=== PATIENT | male | born 1965 | race Caucasian/White ===

== ENCOUNTER 2017-11-28 09:24 | Emergency (ER) | payer OTHER, BC ==
--- NOTE | 2017-11-28 11:03 | CR ---
Clinical history: 52-year-old male injured in a fall "onto back". Interpretation: AP lateral and open-mouth odontoid views of the cervical spine unremarkable. Homogeneous normal bone density and normal height/alignment of the 7 cervical vertebra. No sign of pathologic skeletal lesion, prevertebral soft tissue swelling, cervical fracture, spondylo listhesis or abnormal intervertebral disc space narrowing. No cervical rib anomalies. Lung apices clear. CONCLUSION: Negative exam.
--- NOTE | 2017-11-28 11:05 | CR ---
Clinical history: 52-year-old male injured fall on to back ( "negative" cervical spine exam). Interpretation: Subtle relative intervertebral disc space narrowing with endplate sclerosis and hyper trophic marginal spur formation several levels mid and lower dorsal spine characteristic of chronic d isc disease and arthritic spondylosis. No paraspinal soft tissue mass (hematoma), sign of thoracic fracture or dislocation. Posterior ribs unremarkable. Normal cardiac silhouette and mediastinal width. CONCLUSION: Chronic multilevel disc disease and arthritis. No acute fractures.
--- NOTE | 2017-11-28 11:09 | CR ---
Clinical history: 52-year-old male emergency department after a fall and injury. Interpretation: AP lateral lumbosacral spine exam confirms chronic lower lumbar disc disease i.e. int erspace narrowing with some endplate sclerosis and marginal spur formation at the L5-S1 level. No sign of psoas hematoma or lumbar fracture/spondylolisthesis. No other abnormal intervertebral disc space narrowing. Symmetric spacing normal-appearing SI and hip joints. CONCLUSION: No fractures. L5-S1 disc disease.
[2017-11-28] MEDS ORDERED: methylPREDNISolone Sodium Succinate 125 MG/2 ML SDV IVPUSH ONE (11:17)
[2017-11-28] MEDS ORDERED: Ketorolac 30 MG/ML SDV IM ONE (11:17)
[2017-11-28 11:23] VITALS: BP 111/83
--- NOTE | 2017-11-28 11:28 | EDM.PDOC ---
ED HPI GENERAL MEDICAL PROBLEM - General Chief Complaint: Back Pain or Injury Stated Complaint: SLIPPED ON ICE, ON BACK Time Seen by Provider: 11/28/17 09:58 Source of Information: Reports: Patient, RN, RN Notes Reviewed History Limitations: Reports: No Limitations - History of Present Illness INITIAL COMMENTS - FREE TEXT/NARRATIVE: Pt presents to the ER with c/o slipping on ice and falling flat on his back at [facility] where he is currently working. He states this happened about 0630. He states he did hit his head on the ground, but was wearing a stocking cap and did not lose consciousness. He c/o a dull headache. He also c/o low back/ thoracic pain. He states the pain is sharp if he is moving around, with a sharp shooting pain that goes down the left leg. Pain also occurs in the right buttock and the right lower quadrant. Pt states he has had his appendix removed. Pt denies numbness or tingling, saddle anesthesia, or involuntary loss of bowel or bladder. Pt states he took Aleve prior to coming to the ER. 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 Back Pain Score (Numeric/FACES): 7 - Related Data Allergies Allergy/AdvReac Type Severity Reaction Status Date / Time lisinopril Allergy foot cramps Verified 11/28/17 09:39 Home Meds: Home Meds Cyclobenzaprine [Flexeril] 10 mg PO Q8H PRN 05/02/15 [History] Diltiazem [Dilacor XR] 180 mg PO DAILY 05/02/15 [History] SUMAtriptan [Imitrex] 50 mg PO ASDIRECTED PRN 05/02/15 [History] Losartan Potassium [Cozaar] 50 mg PO DAILY 09/11/17 [History] Multivitamin [Zoo Chews] 1 tab PO DAILY 09/11/17 [History] Pravastatin Sodium 10 mg PO DAILY 09/11/17 [History] Tadalafil [Cialis] 2.5 mg PO DAILY PRN 09/11/17 [History] Past Medical History HEENT History: Reports: Allergic Rhinitis, Impaired Vision, Sinusitis Cardiovascular History: Reports: High Cholesterol, Hypertension Respiratory History: Reports: None Gastrointestinal History: Reports: Other (See Below) Other Gastrointestinal History: rectal bleeding Genitourinary History: Reports: Other (See Below) Other Genitourinary History: erectile dysfunction, elevated PSA CLINICAL APPEALS SPECIALIST History: Reports: None Musculoskeletal History: Reports: Other (See Below) Other Musculoskeletal History: left shoulder pain, back pain, muscle spasms Neurological History: Reports: Migraines Psychiatric History: Reports: None Endocrine/Metabolic History: Reports: None Hematologic History: Reports: None Immunologic History: Reports: None Oncologic (Cancer) History: Reports: None Dermatologic History: Reports: Other (See Below) Other Dermatologic History: lip lesion - Infectious Disease History Infectious Disease History: Reports: Chicken Pox - Past Surgical History Head Surgeries/Procedures: Reports: None HEENT Surgical History: Reports: Tonsillectomy Cardiovascular Surgical History: Reports: None Respiratory Surgical History: Reports: None Male Surgical History: Reports: None Endocrine Surgical History: Reports: None Other Neurological Surgeries/Procedures: herniated disc back surgery Musculoskeletal Surgical History: Reports: Other (See Below) Other Musculoskeletal Surgeries/Procedures:: low back surgery Oncologic Surgical History: Reports: None Social & Family History - Tobacco Use Smoking Status *Q: Current Every Day Smoker Years of Tobacco use: 25 Packs/Tins Daily: 0.5 Second Hand Smoke Exposure: No - Caffeine Use Caffeine Use: Reports: Coffee, Soda - Recreational Drug Use Recreational Drug Use: No ED ROS GENERAL - Review of Systems Review Of Systems: ROS reveals no pertinent complaints other than HPI. ED EXAM,LOWER BACK PAIN/INJURY - Physical Exam Exam: See Below Exam Limited By: No Limitations General Appearance: Alert, WD/WN, Mild Distress Eye Exam: Bilateral Eye: EOMI, Normal Inspection, PERRL (4 ) Ears: Normal External Exam, Normal Canal, Hearing Grossly Normal, Normal TMs Nose: Normal Inspection, Normal Mucosa, No Blood Throat/Mouth: Normal Inspection, Normal Voice, No Airway Compromise Head: Atraumatic, Normocephalic Neck: Normal Inspection, Supple, Non-Tender, Full Range of Motion Respiratory/Chest: No Respiratory Distress, Lungs Clear, Normal Breath Sounds, No Accessory Muscle Use, Chest Non-Tender Cardiovascular: Normal Peripheral Pulses, Regular Rate, Rhythm, No Edema, No Gallop, No JVD, No Murmur, No Rub GI/Abdominal: Normal Bowel Sounds, Soft, No Organomegaly, No Distention, No Abnormal Bruit, No Mass, Tender (RLQ) (Male) Exam: Deferred Rectal (Males) Exam: Deferred Back Exam: Normal Inspection, CVA Tenderness (L), CVA Tenderness (R), Decreased Range of Motion, Muscle Spasm, Paraspinal Tenderness, Vertebral Tenderness Extremities: Normal Inspection, Non-Tender, No Pedal Edema, Normal Capillary Refill, Limited Range of Motion (legs bilaterally. Moves very gingerly) Neurological: Alert, Normal Mood/Affect, Normal Dorsiflexion, CN II-XII Intact, Normal Plantar Flexion, Normal Gait, Normal Reflexes, No Motor/Sensory Deficits , Oriented x 3 Psychiatric: Normal Affect, Normal Mood Skin Exam: Warm, Dry, Intact, Normal Color, No Rash Lymphatic: No Adenopathy Course - Vital Signs Last Recorded V/S: Last Vital Signs Temp 97.8 F 11/28/17 09:34 Pulse 89 11/28/17 11:22 Resp 16 11/28/17 11:22 BP 111/83 11/28/17 11:22 Pulse Ox 97 11/28/17 09:34 - Orders/Labs/Meds Orders: Active Orders 24 hr Category Date Time Status Orphenadrine [Norflex] Med 11/28/17 11:30 Active 60 mg IM Q12H Medication Orders Orphenadrine Citrate (Norflex) 60 mg IM Q12H DELONTE Last Admin: 11/28/17 11:30 Dose: 60 mg Meds: Medications Generic Name Dose Route Start Last Admin Trade Name Freq PRN Reason Stop Dose Admin Orphenadrine Citrate 60 mg 11/28/17 11:30 11/28/17 11:30 Norflex IM 60 mg Q12H DELONTE Administration Discontinued Medications Generic Name Dose Route Start Last Admin Trade Name Freq PRN Reason Stop Dose Admin Ketorolac Tromethamine 60 mg 11/28/17 11:17 11/28/17 11:34 Toradol IM 11/28/17 11:18 60 mg ONETIME ONE Administration Methylprednisolone Sodium Succinate 125 mg 11/28/17 11:29 11/28/17 11:30 Solu-Medrol IM 11/28/17 11:30 125 mg ONETIME ONE Administration - Radiology Interpretation Free Text/Narrative:: Lumbar Spine xray: No acute findings. Chronic disc disease. Cervical spine xray: No acute findings. Thoracic spine xray: No acute findings. See rad report Departure - Departure Time of Disposition: 11:27 Disposition: Home, Self-Care 01 Condition: Fair Clinical Impression: Muscle strain, Lumbar radiculopathy Contusion Qualifiers: Encounter type: initial encounter Contusion area: lower back Qualified Code(s) : S30.0XXA - Contusion of lower back and pelvis, initial encounter - Discharge Information Instructions: Radicular Pain, Back Injury Prevention, [id number], Sciatica, [id number], Muscle Strain, [id number], Back Pain, Adult, [id number] Forms: ED Department Discharge Additional Instructions: RX: Norflex, Medrol Dose pack, Diclofenac Follow up with your primary care facility if no improvement, or worsening. Rest, Ice, heat to the area as tolerated. - My Orders Last 24 Hours: My Active Orders 11/28/17 11:30 Orphenadrine [Norflex] 60 mg IM Q12H - Assessment/Plan Last 24 Hours: My Active Orders 11/28/17 11:30 Orphenadrine [Norflex] 60 mg IM Q12H
[2017-11-28] MEDS ORDERED: methylPREDNISolone Sodium Succinate 125 MG/2 ML SDV IM ONE (11:29)
== END 2017-11-28 11:52 | disposition home or self-care (01) ==
LOC: DL.ED 09:24
DX: S30.0XXA Contusion of lower back and pelvis, initial encounter (principal); M54.16 Radiculopathy, lumbar region; T14.8XXA Other injury of unspecified body region, initial encounter; I10 Essential (primary) hypertension; E78.00 Pure hypercholesterolemia, unspecified; F17.210 Nicotine dependence, cigarettes, uncomplicated; Z79.899 Other long term (current) drug therapy; Z88.8 Allergy status to other drugs, medicaments and biological substances; W00.0XXA Fall on same level due to ice and snow, initial encounter
CPT/HCPCS: 72040; 72072; 72100; 96372; 99284; J1885; J2360; J2930